=== PATIENT | female | born 1935 | race Caucasian/White ===

== ENCOUNTER 2017-05-23 17:43 | Emergency (ER) | payer MEDICARE ==
[~2017-05-23 17:43] MED LIST: ISOVUE-370 76%-LOCM 1 ML ONE
[2017-05-23 18:14] LABS: #Eosinphils 0.2 thou/uL (0.0-0.7); #Lymphocytes 1.6 thou/uL (1.20-3.40); #Monocytes 0.4 thou/uL (0.11-0.59); #Neutrophils 3.3 thou/uL (1.40-6.50); %Basophils 0.5 % (0.0-1.0); %Lymphocytes 28.4 % (21.0-51.0); %Monocytes 7.7 % (0.0-10.0); %Neutrophils 59.5 % (42.0-75.0); Hemoglobin 11.6 g/dL (12.0-16.0); Mean Corpuscular HGB CONC 33.9 g/dL (32.0-36.0); Mean Corpuscular Volume 91.4 fl (81.0-99.0); Mean Platelet Volume 6.2 fL (7.4-10.4); Platelet Count 307 thou/uL (130-400); RBC Distribution Width 10.9 % (11.5-14.5); Red Blood Cell (RBC) Count 3.76 mill/uL (4.20-5.40); White Blood Cell (WBC) Count 5.5 thou/uL (4.8-10.8)
[2017-05-23] MEDS ORDERED: Ondansetron PF 4 MG/2 ML Vial ONE (18:34)
[2017-05-23 18:48] LABS: ALT (SGPT) Less than 7 U/L (8-55); AST (SGOT) 11 U/L (5-34); Albumin 3.6 g/dL (3.4-4.8); Alkaline Phosphatase 111 U/L (40-150); Anion Gap 13 mmol/L (10-20); BUN (Urea Nitrogen) 16 mg/dL (9.8-20.1); Bilirubin, Total 0.4 mg/dL (0.2-1.2); Calc. Creatinine Clearance 0 mL/min (70-130); Calcium 9.3 mg/dL (7.8-10.44); Carbon Dioxide 26 mmol/L (23-31); Chloride 103 mmol/L (98-107); Estimated GFR-MDRD 62; Globulin 3.4 g/dL (2.4-3.5); Glucose 180 mg/dL (83-110); Potassium 3.8 mmol/L (3.5-5.1); Sodium 138 mmol/L (136-145)
[2017-05-23] MEDS ORDERED: methylPREDNISolone Sod Succ/PF 125 MG/2 ML VIAL ONE (19:28)
[2017-05-23] MEDS ORDERED: Famotidine/PF 20 mg/2ml Vial ONE (19:28)
[2017-05-23] MEDS ORDERED: Water For Inject, Bacteriostat 30 ML ONE (19:28)
[2017-05-23] MEDS ORDERED: diphenhydrAMINE 50 MG/ML VIAL ONE (19:28)
--- NOTE | 2017-05-23 21:22 | CT ---
CT ABDOMEN AND PELVIS WITH IV CONTRAST 05/23/17 HISTORY: Abdominal pain. COMPARISON: 03/18/16 FINDINGS: There is mild atelectasis at the lung bases. Gallbladder is surgically absent. Malrotation of the rig ht kidney is stable. The spleen, left kidney, adrenal glands, and pancreas are within normal limits. Urinary bladder is unremarkable. Lack of oral contrast limits evaluation of the bowel. Projecting inferiorly from the mid sigmoid colo n, a 3.6 cm outpouching containing fluid and gas is surrounded by very subtle inflammation. No free a ir or free fluid are apparent. IMPRESSION: Interval development of a very large, slightly inflamed sigmoid diverticulum. Multiple additional div erticula are also present. POS: CINDY
--- NOTE | 2017-05-27 13:42 | EKG ---
Test Reason : Blood Pressure : / mmHG Vent. Rate : 086 BPM Atrial Rate : 086 BPM P-R Int : 168 ms QRS Dur : 070 ms QT Int : 360 ms P-R-T Axes : 102 020 055 degrees QTc Int : 430 ms Normal sinus rhythm Normal ECG Confirmed by GORDO GARRETT M.D. ([id number]), deputy editor in chief CEZAR TAVAREZ ([id number]) on 05/27/2017 1:41:49 PM Referred By: Confirmed By:GORDO GARRETT M.D.
== END 2017-05-23 19:17 | disposition home or self-care (01) ==
LOC: ERS 17:43
DX: K57.32 Diverticulitis of large intestine without perforation or abscess without bleeding (principal); K21.9 Gastro-esophageal reflux disease without esophagitis; Z85.118 Personal history of other malignant neoplasm of bronchus and lung; Z79.899 Other long term (current) drug therapy
CPT/HCPCS: 36415; 74177; 80053; 83690; 84484; 85025; 93005; 96374; 96375; J1200; J2405; J2930; S0028